=== PATIENT | male | born 1990 | race African-American/Black ===

== ENCOUNTER 2021-10-14 21:43 | Emergency (ER) | payer OTHER ==
[~2021-10-14] VITALS: Ht 177.8 cm; Wt 81.8 kg
[2021-10-14 21:59] VITALS: BP 124/88
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
== END 2021-10-14 22:18 | disposition home or self-care (01) ==
LOC: ER 21:43
DX: R41.0 Disorientation, unspecified (principal); T40.715A Adverse effect of cannabis, initial encounter; Y92.89 Other specified places as the place of occurrence of the external cause
CPT/HCPCS: 99283